=== PATIENT | male | born 1970 | race Caucasian/White ===

== ENCOUNTER 2025-02-06 12:27 | Emergency (ER) | payer OTHER, SELFPAY ==
[2025-02-06 12:28] VITALS: BP 169/132; PULSE 75; RESP 20; TEMP 35.9; O2SAT 98; BMI 31.1
[2025-02-06 12:50] LABS: Hematocrit 42.6 % (40-54); Hemoglobin 14.9 g/dL (13.0-16.5); Immature Granulocytes Count 0.060 X10^3/uL (0.0-0.0); Mean Corp Hgb Conc 35.0 g/dL (32-36); Mean Corpuscular Volume 85.7 fL (80-94); Mean Platelet Vol. 9.0 fl (6.2-12.0); NRBC Flagged by Analyzer 0 % (0-5); Platelet Count 252 K/mm3 (150-450); RBC Distribution Width CV 12.8 % (11.6-14.6); RBC Distribution Width SD 39.9 fl (35.1-43.9); Red Blood Count 4.97 M/mm3 (4.6-6.2); White Blood Count 14.3 K/mm3 (4.4-11.0)
[2025-02-06 13:13] LABS: Lipase 25 U/L (13-75)
[2025-02-06 13:17] LABS: AST(SGOT) 33 U/L (<=37); Alanine Aminotransfer ALT/SGPT 38 U/L (<=46); Albumin, Serum 4.8 g/dL (3.5-5.0); Alkaline Phosphatase 74 U/L (40-129); Anion Gap 16 (5-15); BUN 19 mg/dL (4-19); BUN/Creat Ratio 14.5 RATIO (10-20); Calcium,Total 9.7 mg/dL (7.6-11.0); Carbon Dioxide 22.6 mmol/L (21.0-32.0); Chloride 99 mmol/L (98-108); Estimated Creatinine Clearance 71.90 ml/min (50-250); Globulin 3.1 g/dL (2.2-4.2); Glucose 229 mg/dL (70-99); Potassium 4.8 mmol/L (3.3-5.1)
[2025-02-06 13:43] LABS: Mucous, Urine 0 SEEN /hpf (<or=2+); Squamous Epithelial Cells - UA 0 SEEN /hpf (0-5)
[2025-02-06 13:47] LABS: Color, Urine Straw (Yellow); Glucose, Dipstick 1000 mg/dl (Normal); Ketone-Dipstick 15 mg/dl (Negative); Leukocyte Esterase-Dipstick Negative /ul (Negative); Nitrite-Dipstick Negative (Negative); Occult Blood-Urine 10 /ul (Negative); Protein-Dipstick 30 mg/dl (Negative); Specific Gravity, Urine 1.010 (1.002-1.030); Urine Bilirubin Dipstick Negative (Negative)
[2025-02-06] MEDS: 0.9% Normal Saline (1000mL) 1,000 ML 999 ML IV (13:51)
--- NOTE | 2025-02-06 13:54 | EDS_ITS ---
HPI History of Present Illness Chief Complaint: Abd Pain Narrative Narrative: Chief complaint and HPI: 54-year-old male presents for evaluation of left lower quadrant abdominal pain. Patient has a history of diabetes. Onset of symptoms yesterday evening. Denies any fever, chills, shortness of breath, chest pain, dysuria, diarrhea. Endorses some constipation, nausea, vomiting. Has never had a colonoscopy. Review of systems: See HPI Medications: As listed on the chart Allergies: As listed on the chart PFSH: Per chart Vital signs: As listed on the chart. Reviewed. Physical exam: Gen: A&O x3, NAD Head: Normocephalic, atraumatic Eyes: No sclera icterus, conjunctiva clear ENT: Moist mucous membranes Neck: Trachea midline, No JVD CV: RRR, no murmurs, no peripheral edema Resp: Lungs CTA BL, no w/r/c GI: Abd soft, non-distended, tender to palpation left lower quadrant, no rebound or rigidity : No CVA tenderness Musc: Full ROM, no deformity Skin: Warm, dry Neuro: Alert, oriented, grossly intact, sensation intact Psych: Cooperative, appropriate mood and affect [facility] Medical History (Updated 02/06/25 @ 17:[address] Hardy Navarro, DO) Diabetes Home Medications ?Medication ?Instructions ?Recorded ?Last Taken ?Type glimepiride 1 mg tablet 0.5 mg PO DAILY 02/06/25 History metformin 500 mg tablet 500 mg PO BID 02/06/2502/06 History ondansetron 4 mg disintegrating 4 mg PO Q8H PRN PRN Na usea #10 tabs 02/06/25 Unknown Rx tablet oxycodone 5 mg capsule 5 mg PO Q6H PRN pain 3 days #12 02/06/25 Unknown Rx caps tamsulosin 0.4 mg capsule 0.4 mg PO DAILY 14 days #14 caps 02/06/25 Unknown Rx Allergy/AdvReac Type Severity Reaction Status Date / Time No Known Allergies Allergy Verified 02/06/25 12:31 Family History no significant family his Surgical History no surgical history Social History Smoking Status: Never smoker EXAM Physical Exam Const Vital Signs: 02/06/25 12:28 02/06/25 14:00 Temperature 96.7 F L Temperature Source Temporal Pulse Rate 75 67 Respiratory Rate 20 H 16 Blood Pressure 169/132 H 180/97 H Blood Pressure Mean 144 124 Pulse Ox 98 99 Oxygen Delivery Method Room Air MDM MDM MDM Narrative Medical decision making narrative: 54-year-old male presents patient has a history of diabetes. For evaluation of left lower quadrant abdominal pain. Onset of symptoms yesterday evening. De Endorses some constipation, nausea, vomiting. Has never had a colonoscopy. Differential diagnosis includes but is not manage to diverticulitis, colitis, constipation, UTI, urolithiasis, pyelonephritis. NS bolus, morphine, Zofran ordered. Abdominal pain workup ordered including CT abdomen and pelvis. CBC shows leukocytosis of 14.3. No anemia. Platelets unremarkable. CMP shows renal insufficiency with creatinine of 1.34. I do not have previous labs to compare to. May be acute versus chronic. Patient is hyperglycemic at 229. He has known diabetes. No transaminitis. Lipase unremarkable. UA positive for protein, glucose, blood. Negative for UTI and bacteria. CT abdomen pelvis shows mild left hydroureteronephrosis due to a 2 mm distal left ureteral calculus. Given volume of the left pararenal and periureteral fluid, forniceal or uterine rupture is suspected. On reevaluation, patient still having pain. Toradol and p.o. oxycodone ordered. Given results of the CT abdomen pelvis, I will reach out to urology. I do not have urology on-call here at our hospital today therefore will reach out to [facility]. Patient was discussed with [facility] urology, Dr. Yates. Patient, CT abdomen pelvis findings, and laboratory findings were discussed. Okay for patient to discharge home. Follow-up outpati ent. Patient was updated of all the results and the plan. He confirmed understanding. His pain is currently controlled. Will give him a prescription for oxycodone, Zofran, Flomax. Follow-up with urology and primary care physician. Strict return precautions explained. Will get repeat BMP in 2 days to assess for improvement in kidney function. Motrin and Tylenol as needed for pain. He confirmed understanding. Patient will discharge home. Impression: 1. Left ureter lithiasis with mild left hydroureteronephrosis 2. Possible forniceal rupture 3. Renal insufficiency 4. Mild dehydration 5. Hyperglycemia with history of diabetes Lab Data Labs: Laboratory Results - last 24 hr 02/06/25 02/06/25 12:44 13:41 WBC 14.3 H RBC 4.97 Hgb 14.9 Hct 42.6 MCV 85.7 MCH 30.0 MCHC 35.0 RDW Std Deviation 39.9 RDW Coeff of [place] 12.8 Plt Count 252 MPV 9.0 Immature Gran % (Auto) 0.400 Neut % (Auto) 89.2 H Lymph % (Auto) 7.4 L [place] % (Auto) 2.8 Eos % (Auto) 0.0 Baso % (Auto) 0.2 Absolute Neuts (auto) 12.8 H Absolute Lymphs (auto) 1.06 Nucleated RBC % 0 Sodium 137 Potassium 4.8 Chloride 99 Carbon Dioxide 22.6 Anion Gap 16 H BUN 19 Creatinine 1.34 H Estim Creat Clear Calc 71.90 Est GFR (MDRD) Non-Af 64 BUN/Creatinine Ratio 14.5 Glucose 229 H Calcium 9.7 Total Bilirubin 0.71 AST 33 ALT 38 Alkaline Phosphatase 74 Total Protein 8.0 Albumin 4.8 Globulin 3.1 Albumin/Globulin Ratio 1.5 Lipase 25 Urine Color Straw Urine Clarity Clear Urine pH 6.5 Ur Specific [place] 1.010 Urine Protein 30 H Urine Glucose (UA) 1000 H Urine Ketones 15 H Urine Occult Blood 10 H Urine Nitrite Negative Urine Bilirubin Negative Urine Urobilinogen Normal Ur Leukocyte Esterase Negative Urine RBC 0-5 SEEN Urine WBC 0 SEEN Ur Squamous Epith Cells 0 SEEN Urine Bacteria 0 SEEN Urine Mucus 0 SEEN Radiography Diagnostic Testing: Clinical Impression(s) from Imaging Studies Abdomen/Pelvis CT 02/06/25 14:00 IMPRESSION: Mild left hydroureteronephrosis due to a 2.0 mm distal left ureteral calculus. Given volume of left perirenal and periureteral fluid, forniceal or ureteral rupture is suspected. Reading Location: [facility] Discharge Plan Triage Chief Complaint: Abd Pain ED Provider: Hardy Navarro Dx/Rx/DC Orders Clinical Impression: Urolithiasis, Renal insufficiency Instructions: ED Kidney Stone with Pain Prescriptions: New tamsulosin 0.4 mg capsule 0.4 mg PO DAILY 14 Days Qty: 14 0RF oxycodone 5 mg capsule 5 mg PO Q6H PRN (Reason: pain) 3 Days Qty: 12 0RF ondansetron 4 mg tablet,disintegrating 4 mg PO Q8H PRN PRN (Reason: Nausea) Qty: 10 0RF No Action metformin 500 mg tablet 500 mg PO BID glimepiride 1 mg tablet 0.5 mg PO DAILY Other Ambulatory Orders: Basic Metabolic Profile (BMP) (Routine) Timeframe: 2 Days Facility: [facility] - Location: Laboratory [facility]: [facility] ,Out of Referrals: Daniel Yates MD [Non-Staff, Urology] - 3-5 Days Carmine Del Castillo MD [Med Staff - Active Staff, Urology] - 3-5 Days [facility] ,Out of [Primary Care Provider, Medical] - 3-5 Days Activity Restrictions/Additional Instructions: Return back to ED if symptoms change or worsen. Make sure you are drinking plenty of fluids. Your creatinine was a little bit elevated here in the emergency department, I will give you an order to have this repeated in 2 days. Follow-up with urology. I spoke with [facility] urology Dr. Yates on the phone in [place]. If you would like to see somebody closer that would be Dr. Del Castillo. Oxycodone, Tylenol, ibuprofen as needed for pain. Zofran as needed for nausea and vomiting. Take your Flomax. Follow-up with your primary care physician. Print Language: Honduran Disposition Disposition: Home, Self Care
[2025-02-06 14:00] VITALS: BP 180/97; PULSE 67; RESP 16; O2SAT 99
--- NOTE | 2025-02-06 14:00 | CT_ITS ---
PROCEDURE: ABDOMEN/PELVIS W IV CONT ONLY 02/06/2025 REASON FOR EXAM: LEFT LOWER QUADRANT ABDOMINAL PAIN for 1 day. Vomiting. TECHNIQUE: Procedure Code: [id number] Modality: CT Procedure: ABDOMEN/PELVIS W IV CONT ONLY Coronal and Sagittal reconstruction series were provided. CONTRAST: Isovue 370 VOLUME: 84 mL One or more dose reduction techniques were used (e.g., Automated exposure control, adjustment of the mA and/or kV according to patient size, use of iterative reconstruction technique. RADIATION DOSE SUMMARY: CTDlvol: 13.30, 23.55 mGy DLP: 1248 mGycm COMPARISON: None. FINDINGS: LUNG BASES: No basilar airspace consolidation or pleural effusion. Left lower lobe calcified granuloma. Calcified hilar lymph nodes bilaterally. Coronary artery calcification. LIVER: Unremarkable. GALLBLADDER: Unremarkable. No calcified stone. BILE DUCTS: No ductal dilation. PANCREAS: Unremarkable. SPLEEN: Multiple calcified splenic granulomas. ADRENAL GLANDS: Unremarkable. KIDNEYS: Unremarkable right kidney. A 2.0 mm calculus is present in the distal left ureter, just proximal to the ureterovesicular junction. Associated mild left hydroureteronephrosis. Moderate left perinephric and periureteral fluid. STOMACH AND BOWEL: No obstruction or perforation. No wall thickening. No CT evidence of colitis or acute diverticulitis. APPENDIX: Normal-appearing appendix. No CT evidence for appendicitis. RETRO/PERITONEUM: No free fluid. No free air. LYMPH NODES: No lymphadenopathy. PELVIC ORGANS: Unremarkable as visualized. VASCULATURE: No aortic aneurysm. ABDOMINAL WALL AND SOFT TISSUES: Unremarkable. BONES: No fracture or suspicious osseous abnormality. Right hip prosthesis. Degenerative changes of the spine. CT/Abdomen/Pelvis W IV Cont ONLY IMPRESSION: Mild left hydroureteronephrosis due to a 2.0 mm distal left ureteral calculus. Given volume of left perirenal and periureteral fluid, forniceal or ureteral rupture is suspected. Reading Location: [id number]
[2025-02-06 14:17] LABS: Red Blood Cells-Urine 0-5 SEEN /hpf (0-5)
[2025-02-06] MEDS: Ketorolac 30 MG/ML Syringe IV (14:51)
[2025-02-06 16:00] VITALS: BP 153/89; PULSE 66; RESP 18; O2SAT 98
--- NOTE | 2025-02-06 16:54 | PCA ---
[facility] CALLED FOR AN UPDATE ON UROLOGIST, SINCE THEY HAVE STILL NOT CALLED BACK AFTER 2HOURS. STEFFI GONZALEZ IS REACHING OUT AGAIN TO UROLOGIST TO HOPFULLY CONNECT WITH FOR CONSULT
[2025-02-06 17:29] VITALS: BP 150/88; PULSE 67; RESP 18; TEMP 36.8; O2SAT 100
== END 2025-02-06 17:41 | disposition home or self-care (01) ==
PROVIDERS: Emergency Provider Surgery; Visit Provider Surgery
DX: N13.2 Hydronephrosis with renal and ureteral calculous obstruction (principal); E11.65 Type 2 diabetes mellitus with hyperglycemia; E86.0 Dehydration; Z79.84 Long term (current) use of oral hypoglycemic drugs
CPT/HCPCS: 74177; 80053; 81001; 83690; 85025; 96361; 96374; 96375; 99282; Q9967; A4216; J2405